=== PATIENT | female | born 1940 | race Caucasian/White ===

== ENCOUNTER → 2017-06-14 | Outpatient (CLI) | payer OTHER, BC | LOC: BMCIMAGING 13:47 | PROVIDERS: ATTEND Internal Medicine | DX: Z13.820 Encounter for screening for osteoporosis (principal); M85.80 Other specified disorders of bone density and structure, unspecified site ==

== ENCOUNTER 2018-06-16 22:42 | Inpatient (IN) | payer OTHER, BC ==
--- NOTE | 2018-06-16 23:15 | EDPHY ---
H & P Stated Complaint: R HIP INJ/AFTER FALL Time Seen by Provider: 06/16/18 22:58 HPI/ROS: HPI: The patient presents with right-sided hip pain after a fall which occurred at about 9:30 p.m. Tonight. She was walking down her sloped driveway looking up at the stars when she slipped and fell landing on her right hip. She was able to stand though this was quite difficult and was unable to walk. She has had pain ever since. She took ibuprofen 400 mg with improvement in her symptoms. She does not have any numbness or tingling of her leg. She is on Eliquis and took 1 dose of this tonight. REVIEW OF SYSTEMS Constitutional: No fever, no chills. Eyes: No discharge. ENT: No sore throat. Cardiovascular: No chest pain, no palpitations. Respiratory: No cough, no shortness of breath. Gastrointestinal: No abdominal pain, no vomiting. Genitourinary: No hematuria. Musculoskeletal: No back pain. Skin: No rashes. Neurological: No headache. PMHx: History of atrial fibrillation managed on Eliquis, history of sciatica TRAUMA PHYSICAL General Appearance: Alert, no distress Head: Atraumatic Eyes: Pupils equal, round, reactive ENT, Mouth: No hemotypanium, no oral trauma Neck: Non- tender, trachea midline Respiratory: Breathing comfortably Skin: Several superficial abrasions to her right lateral thigh Extremities: Tenderness throughout her proximal right lateral leg to her hip joint and to buttocks, there is no hematoma, there is limited range of motion of her hip secondary to pain Neurological: A&Ox3, GCS=15,normal motor function with 5/5 strength in all 4 extremities, normal sensory exam Source: Patient Exam Limitations: No limitations - Personal History Current Tetanus Diphtheria and Acellular Pertussis (TDAP): Yes - Medical/Surgical History Hx Asthma: No Hx Chronic Respiratory Disease: No Hx Diabetes: No Hx Cardiac Disease: No Hx Renal Disease: No Hx Cirrhosis: No Hx Alcoholism: No Hx HIV/AIDS: No Hx Splenectomy or Spleen Trauma: No Other PMH: BACK ISSUES, SVT SCHEDULED ABLATION, RA, A FIB ON EILIQUIS - Social History Smoking Status: Never smoked Constitutional: Initial Vital Signs Temperature (C) 36.6 C 06/16/18 22:45 Heart Rate 75 06/16/18 22:45 Respiratory Rate 16 06/16/18 22:45 Blood Pressure 139/85 H 06/16/18 22:45 O2 Sat (%) 93 06/16/18 22:45 O2 Delivery Mode Room Air Allergies/Adverse Reactions: codeine Allergy (Verified 06/16/18 22:49) Home Medications: Medication Instructions Recorded Eliquis 06/16/18 Lisinopril-Hctz 10-12.5 mg Tab 06/16/18 Methotrexate 06/16/18 Metoprolol Succinate 06/16/18 Rituxan 06/16/18 Medical Decision Making - Diagnostics Imaging Results: Imaging Impressions Femur X-Ray 06/16/18 23:12 Impression: 1. Acute transverse fracture through the right superior pubic ramus. No right femur fracture identified. Pelvis X-Ray 06/16/18 23:12 Impression: 1. Acute fractures through the right superior and inferior pubic rami. Imaging: I viewed and interpreted images myself Differential Diagnosis: 77-year-old female who presents with right hip pain after a fall. Neurovascularly intact. Differential diagnosis includes hip fracture, pubic ramus fracture, femur fracture. Patient declined pain medication in the emergency department. X-ray was obtained which demonstrated inferior and superior pubic ramus fracture. The patient trialed walking with a walker and was unable to. I plan to admit her to the hospitalist service. I have consulted with Dr. Galdamez of the hospitalist service who will admit the patient. I have also consulted with Dr. Kidd from the orthopedic service who will see the patient later on Tuesday. Departure - Departure Disposition: [facility] In[facility] Acute Clinical Impression: Inferior pubic ramus fracture Qualifiers: Encounter type: initial encounter Fracture type: closed Laterality: right Qualified Code(s): S32.591A - Other specified fracture of right pubis, initial encounter for closed fracture Fracture of superior pubic ramus Qualifiers: Encounter type: initial encounter Fracture type: closed Laterality: right Qualified Code(s): S32.511A - Fracture of superior rim of right pubis, initial encounter for closed fracture Fall Qualifiers: Encounter type: initial encounter Qualified Code(s): W19.XXXA - Unspecified fall, initial encounter Condition: Fair
[2018-06-17] MEDS ORDERED: ONDANSETRON DISINTEGRATING 4 MG TAB PO PRN (00:43)
[2018-06-17] MEDS ORDERED: ONDANSETRON 4 MG/2 ML VIAL IVP PRN (00:43)
--- NOTE | 2018-06-17 02:32 | PDGENHP ---
History and Physical - Chief Complaint Fall - History of Present Illness 77 yo F w/ AF and RA presents after a fall. She was walking her dogs in the dark as she does every night and she fell on her driveway while stargazing. She fell onto her R side an experienced severe pain. In the ED her evaluation was notable for pelvic fractures. She was unable to ambulate due to pain so she is being admitted for pain control and PT/OT evaluations. At the time of my evaluation she is comfortable as long as she does not move. She denies other symptoms. Case discussed with ED physician Dr. Cid, records reviewed in EMR. History Information - Allergies/Home Medication List Allergies/Adverse Reactions: codeine Allergy (Verified 06/16/18 22:49) Home Medications: Eliquis 06/16/18 [Last Taken Unknown] Lisinopril-Hctz 10-12.5 mg Tab 06/16/18 [Last Taken Unknown] Methotrexate 06/16/18 [Last Taken Unknown] Metoprolol Succinate 06/16/18 [Last Taken Unknown] Rituxan 06/16/18 [Last Taken Unknown] I have personally reviewed and updated: family history, medical history - Past Medical History atrial fibrillation Additional medical history: RA - Surgical History Additional surgical history: BTL - Family History Positive for: CAD Additional family history: Father had mesothelioma - Social History Smoking Status: Never smoked Review of Systems Review of Systems: ROS: 10pt was reviewed & negative except for what was stated in HPI & below Physical Exam Physical Exam: Temp Pulse Resp BP Pulse Ox 36.4 C 67 18 119/70 93 06/17/18 02:07 06/17/18 02:07 06/17/18 02:07 06/17/18 02:07 06/17/18 02:07 Constitutional: appears nourished, uncomfortable Eyes: PERRL, EOMI Ears, Nose, Mouth, Throat: moist mucous membranes, no oral mucosal ulcers Cardiovascular: regular rate and rhythym, no murmur, rub, or gallop Respiratory: no respiratory distress, clear to auscultation Gastrointestinal: normoactive bowel sounds, soft, non-tender abdomen Skin: warm, normal color Musculoskeletal: full muscle strength, pain with ROM Neurologic: AAOx3, CN II-XII Intact Psychiatric: interacting appropriately, not anxious Lab Data & Imaging Review 06/17/18 01:50 Sodium 140 mEq/L (135-145) 06/17/18 01:50 Potassium 3.8 mEq/L (3.3-5.0) 06/17/18 01:50 Chloride 108 mEq/L (97-110) 06/17/18 01:50 Carbon Dioxide 25 mEq/l (22-31) 06/17/18 01:50 Anion Gap 7 mEq/L (8-16) L 06/17/18 01:50 BUN 30 mg/dL (7-23) H 06/17/18 01:50 Creatinine 1.1 mg/dL (0.6-1.0) H 06/17/18 01:50 Estimated GFR 48 06/17/18 01:50 Glucose 90 mg/dL (70-100) 06/17/18 01:50 Calcium 10.2 mg/dL (8.5-10.4) 06/17/18 01:50 Total Bilirubin 0.5 mg/dL (0.1-1.4) 06/17/18 01:50 AST 41 IU/L (14-46) 06/17/18 01:50 ALT 39 IU/L (9-52) 06/17/18 01:50 Alkaline Phosphatase 44 IU/L (38-126) 06/17/18 01:50 Total Protein 5.9 g/dL (6.3-8.2) L 06/17/18 01:50 Albumin 3.8 g/dL (3.5-5.0) 06/17/18 01:50 Imaging Review: Imaging Impressions Femur X-Ray 06/16/18 23:12 Impression: 1. Acute transverse fracture through the right superior pubic ramus. No right femur fracture identified. Pelvis X-Ray 06/16/18 23:12 Impression: 1. Acute fractures through the right superior and inferior pubic rami. Assessment & Plan Assessment: 77 yo F w/ RA and AF presents after a fall found to have pelvic fractures. Plan: 1. Pelvic fractures - Occurred after a mechanical fall; XR(personally interpreted) reveals fractures through the right superior and inferior pubic rami. She is unable to ambulate currently due to pain. - Admit for observation - Conservative pain control with APAP, tramadol PRN - PT/OT evaluations 2. AF - On metoprolol and apixaban as outpatient. Her heart rhythm is regular on my examination today. - Continue home medications pending reconciliation 3. RA - On rituximab and methotrexate as an outpatient. Diet - Regular Code - Full Ppx - apixaban Dispo - Admit under observation status
[2018-06-17] MEDS ORDERED: traMADol 50 MG TAB PO PRN (02:33)
[2018-06-17] MEDS: ACETAMINOPHEN 500 MG TAB PO PRN ×2 (06:34→15:18)
--- NOTE | 2018-06-17 10:02 | GCON ---
CHIEF COMPLAINT: Right pelvic fractures. HISTORY OF PRESENT ILLNESS: This is a 77-year-old female. She was walking her dogs at night and fel l in her driveway. She was unable to get up and was taken to the emergency room. She was diagnosed with right pubic rami fractures. She says that she has been able to mobilize out of bed with a walke r so far, and she has been able to move her leg. She has minimal pain when lying, more pain with ran ge of motion. She denies other injury. PAST MEDICAL HISTORY: Atrial fibrillation, RA. PAST SURGICAL HISTORY: BTL. HOME MEDICATIONS: Eliquis, lisinopril, hydrochlorothiazide, methotrexate, metoprolol, and Rituxan. ALLERGIES: Codeine and tramadol. FAMILY HISTORY: Positive for coronary artery disease. SOCIAL HISTORY: She is a nonsmoker. REVIEW OF SYSTEMS: Ten-point review of systems performed, is negative, other than above. PHYSICAL EXAM: GENERAL: She is alert, oriented. She is appropriate. She does not appear in any di stress. VITAL SIGNS: Stable. HEENT: Her eyes are equal and reactive. Her face is atraumatic. He r mouth shows moist mucous membranes. NECK: Supple. CARDIOVASCULAR: She has a regular rate and rh ythm. RESPIRATORY: She has good inspiratory effort. GI: She has a soft belly. EXTREMITIES: Her upper extremities, she moves bilateral upper extremities well. She has no areas of tenderness. She has good range of motion, pain, good strength. Her lower extremities, I can actually range her right hip with minimal pain. She has tenderness over the greater trochanter and somewhat in her groin. S he is minimally tender over SI joint. The patient tolerated range of motion well. She has no pain i n her knee or ankle. She is neurovascularly intact distally, 5/5 strength. Her left lower extremity shows good range of motion. No areas of tenderness, 5/5 strength, good sensory exam. IMAGING: Pelvis x-rays show inferior and superior right pubic rami fractures. I do not see any wide cris of the SI joint, nor do I see a hip fracture. ASSESSMENT: Right inferior and superior pubic rami fractures. PLAN: Her fractures do appear stable. I would let her weightbear as tolerated on this with a walker . She can do range of motion as tolerated. She will need physical therapy to assess her mobility an d her home situation. She may require placement in a rehab facility if she is unable to mobilize. I would not have her drive on this for at least 6 weeks. She will follow up with me in 10 days for x- rays to make sure the fractures are stable, and she was given my card and appointment information. /[id number]/MODL
--- NOTE | 2018-06-17 11:11 | HOSPPROG ---
Hospitalist Progress Note Assessment/Plan: 77 yo F w/ RA and AF presents after a fall found to have pelvic fractures. I reviewed her care w Dr Kidd. *right inferior and superior pubic rami fractures -wbat -no driving x 6 weeks -f/u w Dr Kidd in approximately 10 days *gait instability w fall -PT and OT -reviewed her care w PT who noted the patient was able to walk a few steps and will need rehab *Paroxysmal Atrial fibrillation -resumed Metoprolol and apixaban -she has a hx of SVT and has an ablation scheduled early July -she is in a sinus rhythm during my evaluation *RA On rituximab and methotrexate *plan: patient will require another midnight stay, she is unable to do stairs and walk except for a few steps Subjective: Ely said her pain is well managed mayelin when not moving. Increases w ambulation on the r side. Objective: Vital Signs Temp Pulse Resp BP Pulse Ox 36.8 C 72 14 135/63 H 73 L 06/17/18 07:31 06/17/18 07:31 06/17/18 07:31 06/17/18 07:31 06/17/18 07:31 Laboratory Results 06/17/18 01:50 06/16/18 06/17/18 06/18/18 05:59 05:59 05:59 Output Total 350 Balance -350 - Physical Exam Constitutional: no apparent distress, appears nourished, not in pain Eyes: PERRL Ears, Nose, Mouth, Throat: hearing normal Cardiovascular: regular rate and rhythym Respiratory: no respiratory distress Gastrointestinal: normoactive bowel sounds Skin: warm Musculoskeletal: generalized weakness Neurologic: AAOx3 Psychiatric: interacting appropriately ICD10 Worksheet Patient Problems: Problems Problem Status Onset Fall Acute Fracture of superior pubic ramus Acute Inferior pubic ramus fracture Acute
--- NOTE | 2018-06-17 11:58 | ASMTCMCOM ---
CM Note CM Note Notes: Pt has pubic rami fx after fall, resides with near [place]. PT rec SNF. [facility], hopes she will progress to be able to go home. CM to [facility]. Date Signed: 06/17/2018 11:58 AM Electronically Signed By:MELVIN Estrada
[2018-06-17] MEDS: LISINOPRIL/HCTZ 10/12.5 MG 1 EA TAB PO SCH (12:12)
[2018-06-17] MEDS: APIXABAN 5 MG TAB PO SCH ×2 (12:12→21:12)
--- NOTE | 2018-06-17 15:00 | PDMN ---
Medical Necessity Medical necessity: [facility] Musculoskeletal Disease: 77 y/o with fxs after mechanical fall, acute fx right superior and inferior pubic rami, cont w/ gait instability, PT/OT consults who noted pt was able to walk only a few steps and will need rehab, per MD pt will require another [place] stay as she is unable to do stairs and walk except for a few steps. Trauma consult, no surgery at this time. Switch to IP per MD order 06/17/18 @ 1137. Hx Afib, RA - on rituxan and MTX as OP.
--- NOTE | 2018-06-17 15:47 | ASMTLACE ---
BLANKA Acuity / Level of Answers: Yes Care: Did the patient have an inpatient admission? # of Emergency department Answers: 0 visits in the last 6 months Score: 3 Date Signed: 06/17/2018 03:46 PM Electronically Signed By:MELVIN Estrada
[2018-06-17] MEDS: METOPROLOL SUCCINATE XR 25 MG TAB PO SCH (21:11)
[2018-06-18] MEDS: APIXABAN 5 MG TAB PO SCH ×2 (08:11→20:14)
[2018-06-18] MEDS: ACETAMINOPHEN 500 MG TAB PO PRN ×2 (08:11→15:57)
[2018-06-18] MEDS: LISINOPRIL/HCTZ 10/12.5 MG 1 EA TAB PO SCH (08:11)
--- NOTE | 2018-06-18 09:26 | SOAPPROG ---
SOAP Progress Note Assessment/Plan: Assessment: R sup/inf rami fx Plan: wbat with walker on right side rom as tolerated f/u with me in 10 days 06/18/18 09:25 Subjective: no pain at rest pain with attempt at wt bearing Objective: Vital Signs Temp Pulse Resp BP Pulse Ox 37.6 C 76 18 133/63 H 90 L 06/18/18 07:40 06/18/18 07:40 06/18/18 07:40 06/18/18 08:11 06/18/18 07:40 06/17/18 06/18/18 06/19/18 05:59 05:59 05:59 Intake Total 750 Output Total 500 Balance 250 sitting comfortable ICD10 Worksheet Patient Problems: Problems Problem Status Onset Fall Acute Fracture of superior pubic ramus Acute Inferior pubic ramus fracture Acute
--- NOTE | 2018-06-18 09:51 | HOSPPROG ---
Hospitalist Progress Note Assessment/Plan: 77 yo F w/ RA and AF presents after a fall found to have pelvic fractures. *right inferior and superior pubic rami fractures -wbat -no driving x 6 weeks -f/u w Dr Kidd in approximately 10 days *gait instability w fall -PT and OT -reviewed her care w PT who noted the patient was able to walk a few steps and will need rehab *Paroxysmal Atrial fibrillation -resumed Metoprolol and apixaban -she has a hx of SVT and has an ablation scheduled early July -she is in a sinus rhythm *RA On rituximab and methotrexate *insomnia -had difficulty sleeping last night -will add melatonin and Restoril prn *plan: cont supportive care Subjective: Ely is still having difficulty w ambulation. Objective: Vital Signs Temp Pulse Resp BP Pulse Ox 37.6 C 76 18 133/63 H 90 L 06/18/18 07:40 06/18/18 07:40 06/18/18 07:40 06/18/18 08:11 06/18/18 07:40 06/17/18 06/18/18 06/19/18 05:59 05:59 05:59 Intake Total 750 Output Total 500 Balance 250 - Physical Exam Constitutional: uncomfortable Eyes: PERRL Ears, Nose, Mouth, Throat: hearing normal Cardiovascular: regular rate and rhythym Respiratory: no respiratory distress Skin: warm Musculoskeletal: generalized weakness Neurologic: AAOx3 Psychiatric: interacting appropriately ICD10 Worksheet Patient Problems: Problems Problem Status Onset Fall Acute Fracture of superior pubic ramus Acute Inferior pubic ramus fracture Acute
[2018-06-18] MEDS ORDERED: METHOTREXATE PO SCH (11:01)
[2018-06-18] MEDS ORDERED: METHOTREXATE 2.5 MG TAB PO SCH (14:00)
[2018-06-18] MEDS: METOPROLOL SUCCINATE XR 25 MG TAB PO SCH (20:14)
[2018-06-18] MEDS: MELATONIN 3 MG TAB PO SCH (20:14)
[2018-06-18] MEDS: TEMAZEPAM 15 MG CAP PO PRN (22:19)
[2018-06-19] MEDS: ACETAMINOPHEN 500 MG TAB PO PRN ×3 (05:51→20:21)
[2018-06-19] MEDS: LISINOPRIL/HCTZ 10/12.5 MG 1 EA TAB PO SCH (09:02)
[2018-06-19] MEDS: APIXABAN 5 MG TAB PO SCH ×2 (09:03→20:20)
--- NOTE | 2018-06-19 14:46 | HOSPPROG ---
Hospitalist Progress Note Assessment/Plan: 77 yo F w/ RA and AF presents after a fall found to have pelvic fractures. *right inferior and superior pubic rami fractures -wbat -no driving x 6 weeks -f/u w Dr Kidd in approximately 10 days *gait instability w fall -PT and OT -she is still having difficulty w ambulation, doubtful she can return home - rehab will help her significantly *Paroxysmal Atrial fibrillation -resumed Metoprolol and apixaban -she has a hx of SVT and has an ablation scheduled early July -she is in a sinus rhythm *RA On rituximab and methotrexate *insomnia -Restoril helped *plan: Subjective: Ely said she is fine unless she ambulates, pain is mainly on right side. Objective: Vital Signs Temp Pulse Resp BP Pulse Ox 37.0 C 64 20 105/63 93 06/19/18 11:47 06/19/18 11:47 06/19/18 11:47 06/19/18 11:47 06/19/18 11:47 06/18/18 06/19/18 06/20/18 05:59 05:59 05:59 Intake Total 750 1850 Output Total 500 800 300 Balance 250 1050 -300 - Physical Exam Constitutional: no apparent distress, uncomfortable Eyes: PERRL Ears, Nose, Mouth, Throat: hearing normal Respiratory: no respiratory distress Skin: warm Musculoskeletal: generalized weakness Neurologic: AAOx3 Psychiatric: interacting appropriately ICD10 Worksheet Patient Problems: Problems Problem Status Onset Fall Acute Fracture of superior pubic ramus Acute Inferior pubic ramus fracture Acute
--- NOTE | 2018-06-19 15:06 | ASMTCMCOM ---
CM Note CM Note Notes: Spoke with Hortensia from [facility] and they have accepted patient for their program. Spoke with patient who has chosen [facility] and let Hortensia know patient has agreed to their facility for rehab.Confirmed patient was changed to inpatient status on the and so patient will be eligible to go to [facility] tomorrow. CM will follow. Date Signed: 06/19/2018 03:06 PM Electronically Signed By:Nandini Rucker LCSW
[2018-06-19] MEDS: METOPROLOL SUCCINATE XR 25 MG TAB PO SCH (20:20)
[2018-06-19] MEDS: MELATONIN 3 MG TAB PO SCH (20:20)
[2018-06-19] MEDS: TEMAZEPAM 15 MG CAP PO PRN (22:17)
[2018-06-20] MEDS: LISINOPRIL/HCTZ 10/12.5 MG 1 EA TAB PO SCH ×2 (08:14→10:07)
[2018-06-20] MEDS: APIXABAN 5 MG TAB PO SCH (08:15)
--- NOTE | 2018-06-20 10:02 | HOSPPROG ---
Hospitalist Progress Note Assessment/Plan: 77 yo F w/ RA and AF presents after a fall found to have pelvic fractures. *right inferior and superior pubic rami fractures -wbat -no driving x 6 weeks -f/u w Dr Kidd in approximately 10 days *gait instability w fall -PT and OT -she is still having difficulty w ambulation, doubtful she can return home - rehab will help her significantly *Paroxysmal Atrial fibrillation -resumed Metoprolol and apixaban -she has a hx of SVT and has an ablation scheduled early July -she is in a sinus rhythm *RA On rituximab and methotrexate *insomnia -Restoril helped *plan: dc today Subjective: Ely is having trouble mobilizing, overall pain has been well managed. Objective: Vital Signs Temp Pulse Resp BP Pulse Ox 37.6 C 84 14 108/59 L 92 06/20/18 07:36 06/20/18 07:36 06/20/18 07:36 06/20/18 08:14 06/20/18 07:36 06/19/18 06/20/18 06/21/18 05:59 05:59 05:59 Intake Total 1850 575 Output Total 800 1300 Balance 1050 -725 - Physical Exam Constitutional: no apparent distress, appears nourished Eyes: PERRL Ears, Nose, Mouth, Throat: hearing normal Cardiovascular: regular rate and rhythym Respiratory: no respiratory distress Skin: warm Musculoskeletal: generalized weakness Neurologic: AAOx3 Psychiatric: interacting appropriately ICD10 Worksheet Patient Problems: Problems Problem Status Onset Fall Acute Fracture of superior pubic ramus Acute Inferior pubic ramus fracture Acute
[2018-06-20 10:08] VITALS: BP 108/59
--- NOTE | 2018-06-20 10:11 | PDIAF ---
- Diagnosis Diagnosis: r inferior, superior pubic rami fracture Code Status: Full Code - Medication Management Discharge Medications: Medications to Continue on Transfer Apixaban [Eliquis] 5 mg PO BID 06/16/18 [Last Taken 06/16/18] Lisinopril/Hctz 10/12.5 mg [Zestoretic/Prinzide 10/12.5MG (*)] 1 ea PO DAILY 04/26 [Last Taken 06/16/18] Methotrexate Sodium [Trexall] 30 mg PO SIEGEL 06/16/18 [Last Taken 06/11/18] Metoprolol Succinate Xr [Toprol Xl 25 mg (*)] 50 mg PO HS 06/16/18 [Last Taken 06/16/18] riTUXimab [Rituxan 500mg (*)] 0 mg IV ONCE 06/16/18 [Last Taken Unknown] Ranitidine HCl 150 mg PO DAILY PRN 06/17/18 [Last Taken Unknown] Acetaminophen [Tylenol ES 500 mg (*)] 1,000 mg PO TID PRN tab 06/20/18 [Last Taken Unknown] Melatonin [Melatonin 3 MG (*)] 3 mg PO HS tab 06/20/18 [Last Taken Unknown] Temazepam [Restoril 15 MG (*)] 15 mg PO HS PRN cap 06/20/18 [Last Taken Unknown ] traMADol [Ultram 50 mg (*)] 50 mg PO Q6HRS PRN tab 06/20/18 [Last Taken Unknown ] Discharge Medications: Refer to the Discharge Home Medication list for PRN reason. PICC Care - Routine: N/A - Orders Services needed: Physical Therapy, Occupational Therapy Diet Recommendation: no restrictions on diet Diet Texture: Regular Texture Diet Additional Instructions: wt bearing as tolerated on right side with walker. no driving for 6 weeks f/u with Dr Kidd in 10 days hold blood pressure medications for systolic <[address] Truong in approximately 2 weeks for f/u care - Follow Up Care Current Providers and Referrals: Srikanth Truong MD [Primary Care Provider] - As per Instructions Peter Kidd MD [Medical Doctor] - follow up in 10 days
--- NOTE | 2018-06-20 10:33 | GDS ---
DISCHARGE DIAGNOSES: 1. Right inferior and superior pubic rami fracture. 2. Gait instability with fall. 3. Paroxysmal atrial fibrillation. 4. Rheumatoid arthritis. 5. Insomnia. CONSULTATION: Peter Kidd MD. HISTORY OF PRESENT ILLNESS: Briefly, the patient is a 77-year-old female with rheumatoid arthritis who fell while walking her dog. She came to the emergency room and was noted to have pelvic fractures. She was seen and evaluated by Orthopedic Surgery. Recommendation was weightbearing as tolerated and further follow up with them. HOSPITAL COURSE: 1. Right inferior and superior pubic rami fractures. No driving for 6 weeks. Follow up with Dr. Kidd in 10 days. 2. Gait instability with fall. Will go to a [facility] facility for rehabilitation. 3. Paroxysmal atrial fibrillation. She is on metoprolol and apixaban. She has a history of SVT. She has an ablation scheduled early this July. She has been in sinus rhythm. 4. RA. Resumed her home medications. 5. Insomnia. Started on Restoril as well as melatonin with good results. DISCHARGE CONDITION: Stable. Blood pressure is 108/59, heart rate of 84, respiratory rate of 14, O2 sats on room air 92%. Temperature is 37.6 Celsius. MEDICATIONS AT DISCHARGE: Please see the EMR. DISCHARGE INSTRUCTIONS: 1. Follow up with Dr. Kidd in 10 days. 2. Weightbearing as tolerated. 3. If she develops fever, chills, chest pain, or shortness of breath, return to the ER. 4. No driving for 6 weeks. Greater than 30 minutes discharging and coordinating the patient's care. /[id number]/MODL MTDD
--- NOTE | 2018-06-20 14:20 | ASMTCMCOM ---
CM Note CM Note Notes: Pt medically stable for d/c to [facility] Orders sent in [employer]. MARGY Vargas called report. Hortensia with [facility] scheduled wc transport. Date Signed: 06/20/2018 02:16 PM Electronically Signed By:MELVIN Estrada
--- NOTE | 2018-06-20 14:20 | ASDISCHSUM ---
Discharge Information Plan Status:SNF Medically Cleared to Leave: Discharge Date:06/20/2018 12:54 PM CM D/C Disposition:Nursing Home Facility ADT D/C Disposition:Nursing Home Facility Projected Discharge Date:06/20/2018 11:00 AM Transportation at D/C:Wheelchair Van Discharge Delay Reason: Follow-Up Date:06/20/2018 11:00 AM Discharge Slot: Final Diagnosis: Placement Information Referral Type:*Alf/SNF Referral ID:[id number] Provider Name:[facility] Address 1:[address] Address 2: City:[place] Selection Factors: State:[place] Patient Contact Information Contact Name:AMANDA Relationship: [address] [facility] City:[place] Alternate Phone: State/Zip Code:[place] [address] Email: Financial Information Financial Class:Medicare Primary Plan Desc:MEDICARE INPATIENT Primary Plan Number:[id number] Secondary Plan Desc: OUT OF [facility] Secondary Plan Number:[id number] Assessment Information [facility] CM Progress Note CM Note CM Note Notes: Pt has pubic rami fx after fall, resides with near [place]. PT rec SNF. Pt requests referrals sent to [facility] and Klaudia Aleman, hopes she will progress to be able to go home. CM to [facility]. Date Signed: 06/17/2018 11:58 AM Electronically Signed By:MELVIN Estrada LACE LACE Acuity / Level of Answers: Yes Care: Did the patient have an inpatient admission? # of Emergency department Answers: 0 visits in the last 6 months Score: 3 Date Signed: 06/17/2018 03:46 PM Electronically Signed By:MELVIN Estrada [facility] CM Progress Note CM Note CM Note Notes: Spoke with Hortensia from [facility] and they have accepted patient for their program. Spoke with patient who has chosen [facility] and let Hortensia know patient has agreed to their facility for rehab.Confirmed patient was changed to inpatient status on the and so patient will be eligible to go to [facility] tomorrow. CM will follow. Date Signed: 06/19/2018 03:06 PM Electronically Signed By:Nandini Rucker LCSW [facility] CM Progress Note CM Note CM Note Notes: Pt medically stable for d/c to [facility] SNF. Orders sent in [employer]. MARGY Vargas called report. Hortensia with [facility] scheduled wc transport. Date Signed: 06/20/2018 02:16 PM Electronically Signed By:MELVIN Estrada Intervention Information Intervention Type:*IM-Signed Date of Service:06/20/2018 11:29 AM Patient Type:Inpatient Staff Member:Bushra Rubio Hours: Discipline: Severity: Comment:
== END 2018-06-20 12:54 | DRG 536 ==
LOC: F3N 06-17 02:12 → OBSVTOIN 06-17 11:37
PROVIDERS: ADMIT Student in an Organized Health Care Education/Training Program; ATTEND Student in an Organized Health Care Education/Training Program
DX: S32.511A Fracture of superior rim of right pubis, initial encounter for closed fracture (principal); R26.89 Other abnormalities of gait and mobility; I48.0 Paroxysmal atrial fibrillation; G47.00 Insomnia, unspecified; M06.9 Rheumatoid arthritis, unspecified; W01.0XXA Fall on same level from slipping, tripping and stumbling without subsequent striking against object, initial encounter; Y93.K1 Activity, walking an animal
CPT/HCPCS: 97110-GP; 97116-GP; 97161-GP; 97166-GO; 97530-GO; 97530-GP; 97535-GO; G8978-GP-CK; G8979-GP-CI; G8987-GO-CK; G8988-GO-CJ

== ENCOUNTER → 2018-09-09 | Outpatient (CLI) | payer OTHER, BC | LOC: FIMAGING 12:13 | PROVIDERS: ATTEND Orthopaedic Surgery | DX: S32.591G Other specified fracture of right pubis, subsequent encounter for fracture with delayed healing (principal) ==

== ENCOUNTER → 2018-09-13 | Outpatient (CLI) | payer OTHER, BC | LOC: FCPNEURO 20:00 | PROVIDERS: ATTEND Student in an Organized Health Care Education/Training Program | DX: G47.31 Primary central sleep apnea (principal); G47.33 Obstructive sleep apnea (adult) (pediatric) ==

== ENCOUNTER → 2019-03-16 | Outpatient (CLI) | payer OTHER, BC | LOC: FIMAGING 13:04 ==